=== PATIENT | female | born 1970 | race Caucasian/White ===

== ENCOUNTER 2020-04-08 11:33 | Observation (INO) | payer BC ==
[2020-04-08] MEDS ORDERED: NITROGLYCERIN OINT 1 INCH/GM PACKET TOPICAL STA (11:51)
[2020-04-08] MEDS ORDERED: ASPIRIN 81 MG PO STA (11:51)
--- NOTE | 2020-04-08 11:53 | ED ---
General Adult HPI - General Chief complaint: Chest Pain Stated complaint: chest pain Time Seen by Provider: 04/08/20 11:44 Source: patient, RN notes reviewed Mode of arrival: ambulatory Limitations: no limitations - History of Present Illness Initial comments: Patient is a pleasant 49-year-old female presenting to the emergency Department with complaints of chest discomfort. Onset of symptoms was around 9:30 this morning. Patient has a mild ache in her chest rated 3-5, waxing and waning. Never severe. There is some radiation towards the shoulders. No history of similar symptoms previously. Discomfort is mild at this time. Patient states she has been a little bit sweaty. No nausea. Maybe a little bit short of breath. No leg pain or leg swelling. - Related Data Allergies Allergy/AdvReac Type Severity Reaction Status Date / Time Penicillins Allergy Rash/Hives Verified 04/08/20 11:41 Review of Systems ROS Statement: Those systems with pertinent positive or pertinent negative responses have been documented in the HPI. ROS Other: All systems not noted in ROS Statement are negative. Constitutional: Denies: fever Eyes: Denies: eye pain ENT: Denies: ear pain Respiratory: Reports: as per HPI. Denies: cough Cardiovascular: Reports: as per HPI, chest pain Endocrine: Denies: fatigue Gastrointestinal: Denies: abdominal pain Genitourinary: Denies: dysuria Musculoskeletal: Denies: back pain Skin: Denies: rash Neurological: Denies: weakness Past Medical History Past Medical History: Diabetes Mellitus, Hypertension History of Any Multi-Drug Resistant Organisms: None Reported Past Surgical History: Appendectomy, Section, Cholecystectomy, Hystere ctomy Additional Past Surgical History / Comment(s): coloscopy Past Psychological History: Depression Smoking Status: Never smoker Past Alcohol Use History: None Reported Past Drug Use History: None Reported General Exam Limitations: no limitations General appearance: alert, in no apparent distress Head exam: Present: normocephalic Eye exam: Present: normal appearance Neck exam: Present: normal inspection Respiratory exam: Present: normal lung sounds bilaterally. Absent: chest wall tenderness Cardiovascular Exam: Present: regular rate, normal rhythm Expanded Peripheral pulses: 2+: Radial (R), Radial (L), Posterior Tibialis (R), Posterior Tibialis (L) GI/Abdominal exam: Present: soft. Absent: tenderness Extremities exam: Present: normal inspection. Absent: pedal edema, calf tenderness Neurological exam: Present: alert Psychiatric exam: Present: normal affect, normal mood Skin exam: Present: normal color Course Vital Signs 04/08/20 04/08/20 04/08/20 11:37 12:05 12:15 Temperature 98.3 F Pulse Rate 76 75 74 Respiratory 18 Rate Blood Pressure 161/107 146/88 O2 Sat by Pulse 98 Oximetry 04/08/20 04/08/20 04/08/20 12:30 12:45 13:00 Temperature Pulse Rate 67 69 70 Respiratory Rate Blood Pressure 138/83 135/89 134/93 O2 Sat by Pulse 96 98 Oximetry 04/08/20 13:15 Temperature Pulse Rate 66 Respiratory Rate Blood Pressure 133/86 O2 Sat by Pulse Oximetry EKG Findings - EKG Comments: EKG Findings:: Normal sinus rhythm at 69. OH 158. QRS 80. QT 414. QTC 443. Normal axis. Normal QRS. No acute ST change. Medical Decision Making - Medical Decision Making patient reevaluated and somewhat improved with nitro glycerin paced. Still with mild symptoms. Patient updated and on results and plan. - Lab Data Result diagrams: 04/08/20 11:57 04/08/20 11:57 Lab Results 04/08/20 04/08/20 04/08/20 Range/Units 11:57 11:57 11:57 WBC 7.1 (3.8-10.6) k/uL RBC 4.66 (3.80-5.40) m/uL Hgb 14.2 (11.4-16.0) gm/dL Hct 40.5 (34.0-46.0) % MCV 86.9 (80.0-100.0) fL MCH 30.5 (25.0-35.0) pg MCHC 35.1 (31.0-37.0) g/dL RDW 12.0 (11.5-15.5) % Plt Count 207 (150-450) k/uL Neutrophils % 66 % Lymphocytes % 24 % Monocytes % 5 % Eosinophils % 2 % Basophils % 1 % Neutrophils # 4.7 (1.3-7.7) k/uL Lymphocytes # 1.7 (1.0-4.8) k/uL Monocytes # 0.3 (0-1.0) k/uL Eosinophils # 0.2 (0-0.7) k/uL Basophils # 0.1 (0-0.2) k/uL PT 9.9 (9.0-12.0) sec INR 0.9 (<1.2) APTT 22.5 (22.0-30.0) sec D-Dimer <0.17 (<0.60) mg/L FEU Sodium 135 L (137-145) mmol/L Potassium 4.2 (3.5-5.1) mmol/L Chloride 102 (98-107) mmol/L Carbon Dioxide 24 (22-30) mmol/L Anion Gap 9 mmol/L BUN 13 (7-17) mg/dL Creatinine 0.55 (0.52-1.04) mg/dL Est GFR (CKD-EPI)AfAm >90 (>60 ml/min/1.73 sqM) Est GFR (CKD-EPI)NonAf >90 (>60 ml/min/1.73 sqM) Glucose 273 H (74-99) mg/dL Calcium 9.4 (8.4-10.2) mg/dL Magnesium 1.6 (1.6-2.3) mg/dL Total Bilirubin 0.6 (0.2-1.3) mg/dL AST 23 (14-36) U/L ALT 22 (4-34) U/L Alkaline Phosphatase 101 (38-126) U/L Troponin I (0.000-0.034) ng/mL Total Protein 7.2 (6.3-8.2) g/dL Albumin 4.5 (3.5-5.0) g/dL 04/08/20 Range/Units 11:57 WBC (3.8-10.6) k/uL RBC (3.80-5.40) m/uL Hgb (11.4-16.0) gm/dL Hct (34.0-46.0) % MCV (80.0-100.0) fL MCH (25.0-35.0) pg MCHC (31.0-37.0) g/dL RDW (11.5-15.5) % Plt Count (150-450) k/uL Neutrophils % % Lymphocytes % % Monocytes % % Eosinophils % % Basophils % % Neutrophils # (1.3-7.7) k/uL Lymphocytes # (1.0-4.8) k/uL Monocytes # (0-1.0) k/uL Eosinophils # (0-0.7) k/uL Basophils # (0-0.2) k/uL PT (9.0-12.0) sec INR (<1.2) APTT (22.0-30.0) sec D-Dimer (<0.60) mg/L FEU Sodium (137-145) mmol/L Potassium (3.5-5.1) mmol/L Chloride (98-107) mmol/L Carbon Dioxide (22-30) mmol/L Anion Gap mmol/L BUN (7-17) mg/dL Creatinine (0.52-1.04) mg/dL Est GFR (CKD-EPI)AfAm (>60 ml/min/1.73 sqM) Est GFR (CKD-EPI)NonAf (>60 ml/min/1.73 sqM) Glucose (74-99) mg/dL Calcium (8.4-10.2) mg/dL Magnesium (1.6-2.3) mg/dL Total Bilirubin (0.2-1.3) mg/dL AST (14-36) U/L ALT (4-34) U/L Alkaline Phosphatase (38-126) U/L Troponin I <0.012 (0.000-0.034) ng/mL Total Protein (6.3-8.2) g/dL Albumin (3.5-5.0) g/dL - Radiology Data Radiology results: image reviewed (Chest x-ray shows no acute process) Disposition Clinical Impression: Chest pain Disposition: ADMITTED IP TO THIS [facility] Is patient prescribed a controlled substance at d/c from ED?: No Referrals: Aman Garzon MD [Primary Care Provider] - 1-2 days Decision Time: 13:29
[2020-04-08 12:06] LABS: Basophils # (A) 0.1 k/uL (0-0.2); Basophils % (A) 1 %; Eosinophils # (A) 0.2 k/uL (0-0.7); Eosinophils % (A) 2 %; HCT 40.5 % (34.0-46.0); HGB 14.2 gm/dL (11.4-16.0); Lymphocytes # (A) 1.7 k/uL (1.0-4.8); Lymphocytes % (A) 24 %; MCH 30.5 pg (25.0-35.0); MCHC 35.1 g/dL (31.0-37.0); MCV 86.9 fL (80.0-100.0); Mean Platelet Volume 7.5; Monocytes # (A) 0.3 k/uL (0-1.0); Monocytes % (A) 5 %; Neutrophils # (A) 4.7 k/uL (1.3-7.7); Neutrophils % (A) 66 %; Platelet Count 207 k/uL (150-450); RBC 4.66 m/uL (3.80-5.40); WBC 7.1 k/uL (3.8-10.6)
[2020-04-08 12:18] LABS: ALT 22 U/L (4-34); AST 23 U/L (14-36); African American GFR (CKD) >90 (>60 ml/min/1.73 sqM); Albumin 4.5 g/dL (3.5-5.0); Alkaline Phosphatase 101 U/L (38-126); Anion Gap 9 mmol/L; Blood Urea Nitrogen 13 mg/dL (7-17); Calcium 9.4 mg/dL (8.4-10.2); Carbon Dioxide 24 mmol/L (22-30); Chloride 102 mmol/L (98-107); Glucose 273 mg/dL (74-99); Magnesium 1.6 mg/dL (1.6-2.3); Non-African American GFR(CKD) >90 (>60 ml/min/1.73 sqM); Potassium 4.2 mmol/L (3.5-5.1); Sodium 135 mmol/L (137-145); Total Bilirubin 0.6 mg/dL (0.2-1.3); Total Protein 7.2 g/dL (6.3-8.2)
[2020-04-08 12:25] LABS: INR 0.9 (<1.2); Partial Thromboplastin Time 22.5 sec (22.0-30.0); Prothrombin Time 9.9 sec (9.0-12.0)
[2020-04-08 12:41] LABS: D-Dimer <0.17 mg/L FEU (<0.60)
--- NOTE | 2020-04-08 12:42 | XR ---
EXAMINATION TYPE: XR chest 2V DATE OF EXAM: 04/08/2020 CLINICAL HISTORY: Chest Pain. TECHNIQUE: Frontal and lateral view of the chest. COMPARISON: None FINDINGS: The cardiomediastinal silhouette is within normal limits for size. Pulmonary vasculature i s normal. There is no focal air space opacity, pleural effusion, or pneumothorax seen. The osseous st ructures are intact. IMPRESSION: No acute cardiopulmonary process.
[2020-04-08] MEDS ORDERED: NITROGLYCERIN SL TABS 0.4 MG TAB SUBLINGUAL PRN (13:29)
--- NOTE | 2020-04-08 17:39 | ECHOF ---
Referral Reason:Chest pain MEASUREMENTS -------- HEIGHT: 165.1 cm WEIGHT: 72.6 kg BP: RVIDd: 3.0 cm (< 3.3) IVSd: 0.8 cm (0.6 - 1.1) LVIDd: 3.9 cm (3.9 - 5.3) LVPWd: 1.3 cm (0.6 - 1.1) IVSs: 1.3 cm LVIDs: 3.2 cm LVPWs: 1.2 cm LA Diam: 3.0 cm (2.7 - 3.8) Ao Diam: 2.2 cm (2.0 - 3.7) AV Cusp: 1.6 cm (1.5 - 2.6) LA Diam: 3.6 cm (2.7 - 3.8) MV EXCURSION: 14.230 mm (> 18.000) MV EF SLOPE: 74 mm/s (70 - 150) EPSS: 0.4 cm MV E Kimani: 0.71 m/s MV DecT: 153 ms MV A Kimani: 0.70 m/s MV E/A Ratio: 1.01 RAP: 5.00 mmHg RVSP: 11.71 mmHg FINDINGS -------- Sinus rhythm. This was a technically good study. LV size, wall thickness and systolic function are normal, with an EF greater than 55%. The left alan tricular size is normal. The right ventricle is normal in size. The left atrial size is normal. Normal LA size by volume 22+/-6 ml/m2. The right atrial size is normal. The aortic valve is trileaflet, and appears structurally normal. No aortic stenosis or regurgitation. Mild mitral regurgitation is present. Mild tricuspid regurgitation present. Right ventricular systolic pressure is normal at < 35 mmHg. There is no pulmonic regurgitation present. The aortic root size is normal. There is no pericardial effusion. CONCLUSIONS -------- 1. LV size, wall thickness and systolic function are normal, with an EF greater than 55%. 2. The left ventricular size is normal. 3. The right ventricle is normal in size. 4. The left atrial size is normal. 5. Normal LA size by volume 22+/-6 ml/m2. 6. The right atrial size is normal. 7. Mild mitral regurgitation is present. 8. Mild tricuspid regurgitation present. 9. There is no pulmonic regurgitation present. 10. The aortic root size is normal. 11. There is no pericardial effusion. MEDIA PRODUCTION MANAGER: Jolene Palumbo RDCS
[2020-04-08] MEDS ORDERED: ENOXAPARIN 80 MG/0.8 ML SYRINGE SQ STA (17:50)
[2020-04-08] MEDS: METOPROLOL TARTRATE 12.5 MG TAB PO SCH (18:00)
[2020-04-08] MEDS: SODIUM CHLORIDE 0.9% 1,000 ML IV SCH (18:00)
[2020-04-08] MEDS: NITROGLYCERIN OINT 1 INCH/GM PACKET TOPICAL SCH (18:01)
[2020-04-08] MEDS: ATORVASTATIN 20 MG TAB PO SCH (18:01)
--- NOTE | 2020-04-08 19:12 | CONS ---
CONSULTATION HISTORY: This is a 49-year-old lady with a known history of diabetes, borderline hypertension, family history of CAD, presented to the hospital with episode of chest discomfort at 9:30 this morning. She was at rest when the pain occurred. It was in the midsternal area radiating to the shoulders. Also had some diaphoresis and some nausea. She had this lasting for 10-12 minutes and then it slowly got better. She felt concerned, anxious, came into the hospital. EKG revealed a sinus mechanism with minor nonspecific ST changes. Two sets of troponins are normal. She is resting comfortably without symptoms. PAST MEDICAL HISTORY: 1. Type 2 diabetes. 2. Family history of CAD. 3. She is status post cholecystectomy, hysterectomy, and also has 2 sections. 4. Last stress test about 5-6 years ago was negative. 5. ALLERGIES: She is allergic to penicillin. MEDICATIONS: At home include Januvia 100 mg daily, lisinopril 2.5 mg daily, glipizide XL 5 mg b.i.d., Paxil 10 mg daily and vitamin D supplements. PHYSICAL EXAMINATION: On examination, blood pressure is 130/80, pulse rate is about 72 per minute. Fundus was not examined by me. Neck is supple. No JVD. I do not hear a carotid bruit. There is no thyromegaly. Heart exam reveals S1, S2 heard normally in all areas without a rub murmur or gallop. Lungs are clear. Abdomen is soft, nontender. Lower extremities reveal normal pulses. No edema. Central nervous system is normal. EKG revealed sinus mechanism with minor nonspecific ST abnormality. IMPRESSION: 1. Chest pain syndrome cannot exclude CAD. Patient is comfortable at this time. 2. Type 2 diabetes. 3. Borderline hypertension. 4. Family history of CAD. RECOMMENDATIONS: I am recommending that we initiate her on a small dose of beta beni and also 20 mg of Lipitor. Continue all her home medications and IV normal saline 75 cc/hour. If she has any further chest discomfort, I will perform coronary angiography, but if she has no symptoms after she is up and about we will discharge her in the morning and perform a stress test as an outpatient. I discussed my thoughts in detail with the patient and her . Thank you very much for the consult. MMDANGELOL / IJN: [id number] /
[2020-04-08] MEDS: glipiZIDE 5 MG TAB PO SCH (20:17)
[2020-04-08 20:18] LABS: Glucose,Whole Blood 189 mg/dL (75-99)
[2020-04-09] MEDS: NITROGLYCERIN OINT 1 INCH/GM PACKET TOPICAL SCH ×2 (01:13→06:07)
[2020-04-09 04:02] VITALS: RESP 16; TEMP 97.9
[2020-04-09] MEDS: SODIUM CHLORIDE 0.9% 1,000 ML IV SCH (06:09)
[2020-04-09 08:09] LABS: Cholesterol 162 mg/dL (<200); HDL Cholesterol 33 mg/dL (40-60); LDL Cholesterol,Calculated 79 mg/dL (0-99); Triglycerides 250 mg/dL (<150)
[2020-04-09 08:13] VITALS: BP 107/67; PULSE 59
[2020-04-09 08:16] LABS: Glucose,Whole Blood 161 mg/dL (75-99)
[2020-04-09] MEDS ORDERED: LINAGLIPTIN 5 MG TABLET PO SCH (09:00)
[2020-04-09] MEDS ORDERED: ASPIRIN 325 MG TAB PO SCH (09:00)
[2020-04-09] MEDS ORDERED: PARoxetine 10 MG TAB PO SCH (09:00)
[2020-04-09] MEDS ORDERED: ASPIRIN 81 MG PO SCH (09:00)
[2020-04-09] MEDS ORDERED: CHOLECALCIFEROL 400 UNIT TAB PO SCH (09:00)
[2020-04-09] MEDS: METOPROLOL TARTRATE 12.5 MG TAB PO SCH (09:02)
[2020-04-09] MEDS: glipiZIDE 5 MG TAB PO SCH (09:02)
[2020-04-09] MEDS: ATORVASTATIN 20 MG TAB PO SCH (09:02)
--- NOTE | 2020-04-09 11:10 | P.PN ---
Subjective Progress Note Date: 04/09/20 CHIEF COMPLAINT: Chest pain HISTORY OF PRESENT ILLNESS: Patient examined this morning at the bedside. She states her chest pain resolved around 2100 yesterday. She has not had any further chest discomfort. She denies shortness of breath. She has been ambulat ing around the nursing unit today. Vital signs stable. PHYSICAL EXAM: VITAL SIGNS: Reviewed. GENERAL: Well-developed in no acute distress. NECK: Supple. No JVD or thyromegaly LUNGS: Respirations even and unlabored. Lungs essentially clear to auscultation bilaterally. HEART: Regular rate and rhythm. S1 and S2 heard. EXTREMITIES: Normal range of motion. No clubbing or cyanosis. Peripheral pulses intact. No lower extremity edema ASSESSMENT: Chest pain, troponins negative 3 Diabetes mellitus, type II Borderline hypertension Family history of coronary artery disease PLAN: Continue current medication regimen Patient may be discharged home today from a cardiac perspective. She is to follow-up with Dr. Medina. Patient will have outpatient stress test performed. Nurse practitioner note has been reviewed by physician. Signing provider agrees with the documented findings, assessment, and plan of care. Objective - Vital Signs Vital signs: Vital Signs Temp 97.9 F 04/09/20 08:13 Pulse 59 L 04/09/20 08:13 Resp 16 04/09/20 08:13 BP 107/67 04/09/20 08:13 Pulse Ox 98 04/09/20 08:13 Intake & Output 04/08/20 04/09/20 04/09/20 18:59 06:59 18:59 Weight 72.575 kg Other: Voiding Method Toilet Toilet # Voids 2 - Labs CBC & Chem 7: 04/08/20 11:57 04/08/20 11:57 Labs: Abnormal Lab Results - Last 24 Hours (Table) 04/08/20 04/08/20 04/09/20 Range/Units 11:57 20:16 07:33 Sodium 135 L (137-145) mmol/L Glucose 273 H (74-99) mg/dL POC Glucose (mg/dL) 189 H (75-99) mg/dL Triglycerides 250 H (<150) mg/dL HDL Cholesterol 33 L (40-60) mg/dL 04/09/20 Range/Units 08:14 Sodium (137-145) mmol/L Glucose (74-99) mg/dL POC Glucose (mg/dL) 161 H (75-99) mg/dL Triglycerides (<150) mg/dL HDL Cholesterol (40-60) mg/dL
--- NOTE | 2020-04-09 11:51 | P.HPIM ---
History of Present Illness H&P Date: 04/09/20 Chief Complaint: chest pain HISTORY AND PHYSICAL AND DISCHARGE SUMMARY: HISTORY OF PRESENT ILLNESS This is a 49-year-old female patient of Dr. Garzon with past medical history of diabetes mellitus diagnosed 4 years ago, the station all diabetes, hypertension. She complains of chest pain that she had all day yesterday starti ng at 9:30 in the morning and stopped at 10 PM when she went to sleep. It was on the left side of her chest and dull. It was coming and going every 1 minute. She states she also had sweats, nausea and bilateral shoulder pain. She denies any tenderness to her chest. No back pain. She does not relate it to her breasts. She had a recent mammogram done. Regarding her diabetes, she states her A1c is 7 and blood sugar is better controlled since she started Januvia 1 month ago. She has history of having chest pain in [place] 6 years ago and had a stress test done at that time which was reported as negative. Patient came into [facility] emergency center for evaluation. Troponins of been negative on 3 draws. Triglycerides 250, cholesterol 162, LDL 79 and HDL 33. CBC and chemistry panel unremarkable The EKG revealed a sinus rhythm with minor nonspecific ST changes. She was placed on cardiac observation unit and has been seen by cardiology. She was chest pain free through the night and continues to be chest pain-free this morning. Patient was cleared I cardiology for discharge home with plan for follow-up in the outpatient setting for stress testing. Echocardiogram reveals EF greater than 55%, mild mitral regurgitation, mild tricuspid regurgitation. REVIEW OF SYSTEMS At the time of this evaluation Constitutional: No fever, no chills, no night sweats. No weight change. No weakness, fatigue or lethargy. No daytime sleepiness. EENT: No headache. No blurred vision or double vision, no loss of vision. No loss of Hearing, no ringing in the ears, no dizziness. No nasal drainage or congestion. No epistaxis. No sore throat. Lungs: No shortness of breath, cough, no sputum production. No wheezing. Cardiovascular: No chest pain, no lower extremity edema. No palpitations. No paroxysmal nocturnal dyspnea. No orthopnea. No lightheadedness or dizziness. No syncopal episodes. Abdominal: No abdominal pain. No nausea, vomiting. No diarrhea. No constipation. No bloody or tarry stools.. No loss of appetite. Genitourinary: No dysuria, increased frequency, urgency. No urinary retention. Musculoskeletal: No myalgias. No muscle weakness, no gait dysfunction, no frequent falls. No back pain. No neck pain. Integumentary: No wounds, no lesions. No rash or pruritus. No unusual bru ising. No change in hair or nails. Neurologic: No aphasia. No facial droop. No change in mentation. No head injury. No headache. No paralysis. No paresthesia. Psychiatric: No depression. No anxiety. No mood swings. Endocrine: No abnormal blood sugars. No weight change. No excessive sweating or thirst. No cold intolerance. SOCIAL HISTORY Patient is a lifelong nonsmoker, no alcohol use, no marijuana use, no illicit drug use. She is active and walks on a regular basis. She lives at home with her . FAMILY HISTORY Father had history of four-vessel CABG at age 60 and his history of atrial fibrillation. PHYSICAL EXAMINATION Gen: This is a 49-year-old female. She is resting in bed appears to b e in no acute distress. is at bedside. HEENT: Head is atraumatic, normocephalic. Pupils equal, round. Sclerae is anicteric. NECK: Supple. No JVD. No lymphadenopathy. No thyromegaly. LUNGS: Clear to auscultation. No wheezes or rhonchi. No intercostal retractions. HEART: Regular rate and rhythm. No murmur. BACK: No tenderness. ABDOMEN: Soft. Bowel sounds are present. No masses. Mild epigastric tenderness. EXTREMITIES: No pedal edema. No calf tenderness. Dorsalis pedis palpable bila terally. NEUROLOGICAL: Patient is awake, alert and oriented x3. Cranial nerves 2 through 12 are grossly intact. ASSESSMENT AND PLAN 1. Chest pain with negative troponins. Acute coronary syndrome ruled out. Cardiology consult appreciated. Patient has been started on beta beni and Lipitor, aspirin 81 mg. 2. Borderline hypertension. 3. Diabetes mellitus type 2. Patient placed as an observation status Discharge plan: Home. Discharge Medication List Cholecalciferol [Vitamin D3] 400 unit PO DAILY@0900 04/08/20 [History] PARoxetine [Paxil] 10 mg PO DAILY@0900 04/08/20 [History] glipiZIDE XL [Glucotrol XL] 5 mg PO BID@899,192904/08/20 [History] lisinopriL [Zestril] 2.5 mg PO DAILY@89904/08/20 [History] sitaGLIPtin [Januvia] 100 mg PO DAILY@89904/08/20 [History] Aspirin 81 mg PO DAILY chew 04/09/20 [Rx] Atorvastatin [Lipitor] 20 mg PO DAILY #30 tab 04/09/20 [Rx] Metoprolol Tartrate [Lopressor] 12.5 mg PO DAILY #60 tab 04/09/20 [Rx] Impression and plan of care have been directed as dictated by the signing physician. Rachell [place] nurse practitioner acting as scribe for signing physician. Past Medical History Past Medical History: Diabetes Mellitus, Hypertension History of Any Multi-Drug Resistant Organisms: None Reported Past Surgical History: Appendectomy, Section, Cholecystectomy, Hysterec shivam Additional Past Surgical History / Comment(s): coloscopy Past Psychological History: Depression Smoking Status: Never smoker Past Alcohol Use History: None Reported Past Drug Use History: None Reported Medications and Allergies Home Medications Medication Instructions Recorded Confirmed Type Cholecalciferol [Vitamin D3] 400 unit PO DAILY@89904/08/20 04/08/20 History PARoxetine [Paxil] 10 mg PO DAILY@89904/08/20 04/08/20 History glipiZIDE XL [Glucotrol XL] 5 mg PO BID@899,192904/08/20 04/08/20 History lisinopriL [Zestril] 2.5 mg PO DAILY@89904/08/20 04/08/20 History sitaGLIPtin [Januvia] 100 mg PO DAILY@89904/08/20 04/08/20 History Aspirin 81 mg PO DAILY chew 04/09/20 Rx Atorvastatin [Lipitor] 20 mg PO DAILY #30 tab 04/09/20 Rx Metoprolol Tartrate [Lopressor] 12.5 mg PO DAILY #60 tab 04/09/20 Rx Allergies Allergy/AdvReac Type Severity Reaction Status Date / Time Penicillins Allergy Rash/Hives/ Verified 04/08/20 16:01 Swelling Physical Exam Vitals: Vital Signs Temp Pulse Pulse Resp BP BP Pulse Ox 04/09/20 08:13 97.9 F 59 L 16 107/67 98 04/09/20 02:50 97.9 F 56 L 16 117/72 98 04/08/20 20:20 98.4 F 56 L 17 116/71 97 04/08/20 13:46 98.3 F 62 16 135/84 99 04/08/20 13:15 66 133/86 04/08/20 13:00 70 134/93 04/08/20 12:45 69 135/89 98 04/08/20 12:30 67 138/83 96 04/08/20 12:15 74 146/88 04/08/20 12:05 75 04/08/20 11:37 98.3 F 76 18 161/107 98 Intake and Output 04/08/20 04/09/20 04/09/20 22:59 06:59 14:59 Other: Voiding Method Toilet Toilet Toilet # Voids 2 Results CBC & Chem 7: 04/08/20 11:57 04/08/20 11:57 Labs: Abnormal Lab Results - Last 24 Hours (Table) 04/08/20 04/08/20 04/09/20 Range/Units 11:57 20:16 07:33 Sodium 135 L (137-145) mmol/L Glucose 273 H (74-99) mg/dL POC Glucose (mg/dL) 189 H (75-99) mg/dL Triglycerides 250 H (<150) mg/dL HDL Cholesterol 33 L (40-60) mg/dL 04/09/20 Range/Units 08:14 Sodium (137-145) mmol/L Glucose (74-99) mg/dL POC Glucose (mg/dL) 161 H (75-99) mg/dL Triglycerides (<150) mg/dL HDL Cholesterol (40-60) mg/dL Thrombosis Risk Factor Assmnt - Choose All That Apply Each Factor Represents 1 point: Age 41-60 years Other Risk Factors: No Thrombosis Risk Factor Assessment Total Risk Factor Score: 1 Thrombosis Risk Factor Assessment Level: Low Risk
== END 2020-04-09 11:20 | disposition home or self-care (01) ==
LOC: EC 11:33 → 3NCARDOBS 13:29 → MERGE 13:29
PROVIDERS: ADMIT Internal Medicine; ATTEND Internal Medicine
DX: R07.89 Other chest pain (principal); R61 Generalized hyperhidrosis; R11.0 Nausea; E11.9 Type 2 diabetes mellitus without complications; I10 Essential (primary) hypertension; M25.512 Pain in left shoulder; M25.511 Pain in right shoulder; F32.9 Major depressive disorder, single episode, unspecified; F41.9 Anxiety disorder, unspecified; Z90.710 Acquired absence of both cervix and uterus; Z90.49 Acquired absence of other specified parts of digestive tract; Z79.899 Other long term (current) drug therapy; Z88.0 Allergy status to penicillin; Z79.84 Long term (current) use of oral hypoglycemic drugs; Z79.82 Long term (current) use of aspirin; Z82.49 Family history of ischemic heart disease and other diseases of the circulatory system
CPT/HCPCS: 93005 ×2; 96372; 99285; 36415; 93306; 85379; 80061; 80053; 83735; 84484; 85025; 85610; 85730; 71046; G0378 ×2; J1650